=== PATIENT | female | born 1955 | race African-American/Black ===

== ENCOUNTER → 2018-11-10 | Outpatient (CLI) | payer BC | END | disposition home or self-care (01) | LOC: LAB 11:40 | PROVIDERS: ATTEND Physician Assistant | DX: N39.0 Urinary tract infection, site not specified (principal) | CPT/HCPCS: 87086 ==

== ENCOUNTER 2018-11-13 16:34 | Emergency (ER) | payer BC, OTHER ==
[2018-11-13 16:35] VITALS: BP 127/87
[2018-11-13] MEDS ORDERED: InsuLIN REG 1unit/0.01ml Soln (100units/ml) SC ONE ×2 (17:45)
== END 2018-11-13 18:23 | disposition home or self-care (01) ==
LOC: ER 16:38 → MERGE 16:38 → ER 18:22
DX: E11.9 Type 2 diabetes mellitus without complications (principal); Z76.0 Encounter for issue of repeat prescription
CPT/HCPCS: 82962; 96372; 99283; J1815

== ENCOUNTER 2019-04-30 09:39 | Emergency (ER) | payer BC ==
[~2019-04-30] VITALS: Ht 137.2 cm; Wt 36.3 kg
[2019-04-30 09:57] VITALS: BP 114/75
[2019-04-30] MEDS ORDERED: metFORMIN HYDROCHLORIDE 850 MG TAB PO ONE (10:15)
== END 2019-04-30 11:29 | disposition home or self-care (01) ==
LOC: ER 09:39
DX: N39.0 Urinary tract infection, site not specified (principal); E11.9 Type 2 diabetes mellitus without complications; Z76.0 Encounter for issue of repeat prescription
CPT/HCPCS: 82962

== ENCOUNTER 2019-05-03 09:26 | Emergency (ER) | payer BC ==
[~2019-05-03] VITALS: Ht 139.7 cm; Wt 36.3 kg
[2019-05-03 09:46] VITALS: BP 102/58
[2019-05-03 10:14] LABS: Urine Bacteria FEW /hpf (None Seen); Urine Blood 1+ /uL (Negative); Urine Specific Gravity 1.025 (1.001-1.035); Urine WBC 6 /hpf (0 - 5)
[2019-05-03] MEDS ORDERED: metFORMIN HYDROCHLORIDE 500 MG TAB PO ONE (10:30)
== END 2019-05-03 10:52 | disposition home or self-care (01) ==
LOC: ER 09:29
DX: N39.0 Urinary tract infection, site not specified (principal); E11.9 Type 2 diabetes mellitus without complications; Z76.0 Encounter for issue of repeat prescription
CPT/HCPCS: 81001; 82962

== ENCOUNTER 2019-06-11 16:13 | Emergency (ER) | payer BC ==
[~2019-06-11] VITALS: Ht 30.5 cm; Wt 0.5 kg
[2019-06-11] MEDS ORDERED: SODIUM CHLORIDE 0.9% 1,000 ML IV ONE (16:30)
[2019-06-11 16:50] LABS: Basophils # (auto) 0.1 uL; Basophils % (auto) 1.6 % (0.0-2.0); Eosinophils # (auto) 0 uL; Eosinophils % (auto) 0.4 % (0.0-7.0); Hematocrit 40.8 % (36.0-46.0); Hemoglobin 14.4 g/dL (12.2-16.2); Lymphocytes # (auto) 1.7 uL; Lymphocytes % (auto) 35.9 % (10.0-50.0); Mean Corpuscular Hemoglobin 32.3 pg (28.0-32.0); Mean Corpuscular Hgb Conc. 35.2 g/dL (32.0-36.0); Mean Corpuscular Volume 91.7 fL (80.0-100.0); Monocytes # (auto) 0.5 uL; Monocytes % (auto) 10.4 % (0.0-12.0); Neutrophils # (auto) 2.4 uL; Neutrophils % (auto) 51.7 % (37.0-80.0); Nucleated Red Blood Cells % 0.1 %; Platelet Count (auto) 267 10^3/uL (140-450); Red Blood Cells 4.45 10^6/uL (4.0-5.20); Red Cell Distribution Width 12.3 % (11.8-14.3); White Blood Cell 4.7 10^3/uL (4.4-10.8)
[2019-06-11 17:04] LABS: Calcium 8.9 mg/dL (8.5-10.1)
[2019-06-11 17:09] LABS: Albumin 3.4 g/dL (3.4-5.0); BUN/Creatinine Ratio 16.7
[2019-06-11 17:13] LABS: Bilirubin, Total 0.7 mg/dL (0.2-1.0); Total Protein 7.4 g/dL (6.4-8.2)
[2019-06-11 18:01] LABS: Urine Bacteria FEW /hpf (None Seen); Urine Blood TRACE /uL (Negative); Urine WBC 4 /hpf (0 - 5)
[2019-06-11] MEDS ORDERED: cefTRIAXone 1GM/50ML D5W 50 ML IV ONE (18:45)
[2019-06-11] MEDS ORDERED: InsuLIN REG 1unit/0.01ml Soln (100units/ml) SC ONE (19:00)
[2019-06-11 21:00] VITALS: BP 133/75
[2019-06-11] MEDS ORDERED: metFORMIN HYDROCHLORIDE 500 MG TAB PO ONE (22:45)
== END 2019-06-11 22:48 | disposition home or self-care (01) ==
LOC: ER 16:13
DX: N39.0 Urinary tract infection, site not specified (principal); E11.65 Type 2 diabetes mellitus with hyperglycemia
CPT/HCPCS: 36415; 80053; 81001; 82962; 85025; 96365; 96372; 99283; J0696; J1815; J7030

== ENCOUNTER 2019-06-15 09:53 | Emergency (ER) | payer BC ==
[~2019-06-15] VITALS: Ht 139.7 cm; Wt 36.3 kg
[2019-06-15 10:09] VITALS: BP 108/65
[2019-06-15] MEDS ORDERED: METF-370 (10:19)
[2019-06-15 10:55] LABS: Basophils # (auto) 0 uL; Basophils % (auto) 0.8 % (0.0-2.0); Eosinophils # (auto) 0 uL; Eosinophils % (auto) 0.4 % (0.0-7.0); Hematocrit 40.2 % (36.0-46.0); Hemoglobin 13.9 g/dL (12.2-16.2); Lymphocytes # (auto) 0.9 uL; Lymphocytes % (auto) 23.1 % (10.0-50.0); Mean Corpuscular Hgb Conc. 34.7 g/dL (32.0-36.0); Mean Corpuscular Volume 92.4 fL (80.0-100.0); Monocytes # (auto) 0.5 uL; Monocytes % (auto) 12.8 % (0.0-12.0); Neutrophils # (auto) 2.4 uL; Neutrophils % (auto) 62.9 % (37.0-80.0); Nucleated Red Blood Cells % 0.1 %; Platelet Count (auto) 267 10^3/uL (140-450); Red Blood Cells 4.35 10^6/uL (4.0-5.20); Red Cell Distribution Width 12.5 % (11.8-14.3); White Blood Cell 3.9 10^3/uL (4.4-10.8)
[2019-06-15 11:04] LABS: Albumin 3.6 g/dL (3.4-5.0); Calcium 9.4 mg/dL (8.5-10.1); Potassium 4.2 mmol/L (3.5-5.1)
[2019-06-15 11:13] LABS: BUN/Creatinine Ratio 11.3; Bilirubin, Total 0.8 mg/dL (0.2-1.0); Total Protein 7.4 g/dL (6.4-8.2)
[2019-06-15] MEDS ORDERED: SODIUM CHLORIDE 0.9% 1,000 ML IV ONE (11:15)
== END 2019-06-15 14:04 | disposition left against medical advice (07) ==
LOC: ER 09:55
DX: E11.65 Type 2 diabetes mellitus with hyperglycemia (principal); Z53.29 Procedure and treatment not carried out because of patient's decision for other reasons
CPT/HCPCS: 36415; 71046; 80053; 82962; 83735; 84443; 85025; 93005